=== PATIENT | male | born 1945 | race Caucasian/White ===

== ENCOUNTER 2021-04-19 14:37 | Emergency (ER) | payer OTHER ==
[~2021-04-19] VITALS: Ht 167.6 cm; Wt 95.3 kg
[2021-04-19] MEDS ORDERED: LISINOPRIL2.5 MG PO (15:18)
[2021-04-19] MEDS ORDERED: HYDRODIURIL12.5 MG PO (15:19)
[2021-04-19] MEDS ORDERED: XARELTO10 MG PO (15:21)
[2021-04-19] MEDS ORDERED: TYLENOL ARTHRI650 MG PO (19:18)
== END 2021-04-19 20:39 | disposition home or self-care (01) ==
LOC: ER 14:37
DX: M19.071 Primary osteoarthritis, right ankle and foot (principal); M79.671 Pain in right foot